=== PATIENT | female | born 1995 | race Caucasian/White ===

== ENCOUNTER 2017-05-03 11:43 | Emergency (ER) | END 2017-05-03 13:55 | disposition left against medical advice (07) | LOC: UCCORT 11:43 | DX: J02.9 Acute pharyngitis, unspecified (principal); R59.1 Generalized enlarged lymph nodes; Z53.21 Procedure and treatment not carried out due to patient leaving prior to being seen by health care provider ==

== ENCOUNTER 2017-05-03 16:05 | Emergency (ER) | payer OTHER ==
--- NOTE | 2017-05-03 18:00 | UC ---
FLU HPI - HPI Summary HPI Summary: Flew in from [place] last nigh now has a cough body aches and sore throat - History of Current Complaint Chief Complaint: UCRespiratory Stated Complaint: SORE THROAT/ACHES Time Seen by Provider: 05/03/17 17:53 Hx Obtained From: Patient Hx From Patient Unobtainable Due To: Dementia ?: No Onset/Duration: Sudden Onset, Lasting Days - 1 Severity Currently: Moderate Severity Initially: Moderate Pain Intensity: 5 Pain Scale Used: 0-10 Numeric Associated Signs & Symptoms: Positive: Myalgia, Cough, Sore Throat - Allergy/Home Medications Allergies/Adverse Reactions: Allergies Allergy/AdvReac Type Severity Reaction Status Date / Time No Known Allergies Allergy Verified 05/03/17 17:35 Home Medications: Home Medications Control Pill 1 tab DAILY 05/03/17 [History Confirmed 05/03/17] PMH/Surg Hx/FS Hx/Imm Hx Previously Healthy: Yes - Surgical History Surgical History: Yes Surgery Procedure, Year, and Place: WISDOM TEETH - Family History Known Family History: Positive: None - Social History Occupation: Student Lives: With Family Alcohol Use: Weekly Substance Use Type: None Smoking Status (MU): Never Smoked Tobacco Have You Smoked in the Last Year: No Review of Systems Constitutional: Chills, Fatigue Skin: Negative Eyes: Negative ENT: Sore Throat, Nasal Discharge Respiratory: Cough Cardiovascular: Negative Gastrointestinal: Negative Genitourinary: Negative Motor: Negative Neurovascular: Negative Musculoskeletal: Arthralgia, Myalgia Neurological: Negative Psychological: Negative Is Patient Immunocompromised?: No All Other Systems Reviewed And Are Negative: Yes Physical Exam Triage Information Reviewed: Yes Appearance: Well-Appearing, No Pain Distress, Well-Nourished Vital Signs: Initial Vital Signs Temp 99 F 05/03/17 17:36 Pulse 93 05/03/17 17:36 Resp 16 05/03/17 17:36 BP 119/72 05/03/17 17:36 Pulse Ox 100 05/03/17 17:36 Vital Signs Reviewed: Yes Eye Exam: Normal Eyes: Positive: Conjunctiva Clear ENT Exam: Normal ENT: Positive: Normal ENT inspection, Hearing grossly normal, Pharynx normal, Uvula midline. Negative: Nasal congestion, Nasal drainage, Tonsillar swelling, Tonsillar exudate, Trismus, Muffled voice, Hoarse voice, Dental tenderness, Sinus tenderness Dental Exam: Normal Neck exam: Normal Neck: Positive: Supple, Nontender, No Lymphadenopathy Respiratory Exam: Normal Respiratory: Positive: Chest non-tender, Lungs clear, Normal breath sounds, No respiratory distress, No accessory muscle use Cardiovascular Exam: Normal Cardiovascular: Positive: RRR, No Murmur, Pulses Normal, Brisk Capillary Refill Musculoskeletal Exam: Normal Musculoskeletal: Positive: Strength Intact, ROM Intact, No Edema Neurological Exam: Normal Neurological: Positive: Alert, Muscle Tone Normal Psychological Exam: Normal Skin Exam: Normal Diagnostics - Laboratory Diagnostic Studies Completed/Ordered: influenza A/B (-), RST (-) Flu Course/Dx - Course Course Of Treatment: rest increase fluids, otc meducations for symptom relief follow with pcp prn - Differential Dx/Diagnosis Provider Diagnoses: Viral illness URI Discharge - Discharge Plan Condition: Stable Disposition: HOME Patient Education Materials: Pharyngitis (ED), Viral Syndrome (ED) Referrals: [facility] [Outside] - If Needed
== END 2017-05-03 19:02 | disposition home or self-care (01) ==
LOC: UCCORT 16:05
DX: B34.9 Viral infection, unspecified (principal); J06.9 Acute upper respiratory infection, unspecified
CPT/HCPCS: 87502; 87651; 99201; G0463

== ENCOUNTER 2017-12-05 15:30 | Emergency (ER) | payer OTHER ==
[2017-12-05 16:18] VITALS: BP 115/68
[2017-12-05] MEDS ORDERED: cefTRIAXone VIAL(*) 250 MG VIAL IM ONE (16:31)
--- NOTE | 2017-12-05 16:33 | UC ---
Complaint Female HPI - HPI Summary HPI Summary: Pt presents with c/o of possible chlamydia infection. Pt reports that known sexual partner revealed to her that he tested positive for chlamydia after having sexual intercourse with her. Pt denies any urinary symptoms or unusual vaginal discharge or discomfort. - History Of Current Complaint Chief Complaint: UCGU Stated Complaint: PERSONAL Time Seen by Provider: 12/05/17 16:04 Hx Obtained From: Patient Hx Last Menstrual Period: 11/05/17 ?: No Onset/Duration: Sudden Onset Severity Currently: None Pain Intensity: 0 Associated Signs And Symptoms: Positive: Negative - Risk Factors Ectopic Risk Factor: Negative Ovarian Torsion Risk Factor: Reproductive Age - Allergies/Home Medications Allergies/Adverse Reactions: Allergies Allergy/AdvReac Type Severity Reaction Status Date / Time No Known Allergies Allergy Verified 12/05/17 16:10 PMH/Surg Hx/FS Hx/Imm Hx Previously Healthy: Yes - Surgical History Surgical History: Yes Surgery Procedure, Year, and Place: WISDOM TEETH - Family History Known Family History: Positive: Cardiac Disease - Social History Occupation: Student - [employer] Lives: Dormitory/Roommates Alcohol Use: Weekly Substance Use Type: None Smoking Status (MU): Never Smoked Tobacco Have You Smoked in the Last Year: No - Immunization History Vaccination Up to Date: Yes Review of Systems Constitutional: Negative Skin: Negative Eyes: Negative ENT: Negative Respiratory: Negative Cardiovascular: Negative Gastrointestinal: Negative Genitourinary: Negative Motor: Negative Neurovascular: Negative Musculoskeletal: Negative Neurological: Negative Psychological: Negative Is Patient Immunocompromised?: No All Other Systems Reviewed And Are Negative: Yes Physical Exam Triage Information Reviewed: Yes Appearance: Well-Appearing Vital Signs: Initial Vital Signs Temp 99.4 F 12/05/17 16:11 Pulse 74 12/05/17 16:11 Resp 17 12/05/17 16:11 BP 115/68 12/05/17 16:11 Pulse Ox 100 12/05/17 16:11 Vital Signs Reviewed: Yes Eye Exam: Normal ENT Exam: Normal ENT: Positive: Hearing grossly normal Dental Exam: Normal Neck exam: Normal Respiratory Exam: Normal Respiratory: Positive: No respiratory distress Musculoskeletal Exam: Normal Neurological Exam: Normal Psychological Exam: Normal Skin Exam: Normal Complaint Female Dx - Differential Dx/Diagnosis Differential Diagnosis/HQI/PQRI: Sexually Transmitted Disease Provider Diagnoses: sexually transmitted disease exposure Discharge - Sign-Out/Discharge Documenting (check all that apply): Patient Departure All imaging exams completed and their final reports reviewed: No Studies - Discharge Plan Condition: Stable Disposition: HOME Patient Education Materials: Chlamydia (ED), Safe Sex (ED) Referrals: [facility] [Outside] - If Needed No Primary Care Phys,NOPCP [Primary Care Provider] - - Billing Disposition and Condition Condition: STABLE Disposition: Home
[2017-12-05] MEDS ORDERED: Azithromycin TAB* 250 MG PO ONE (16:34)
[2017-12-05] MEDS ORDERED: Lidocaine 1% MPF* 2 ML VIAL ONE (16:45)
== END 2017-12-05 17:15 | disposition home or self-care (01) ==
LOC: UCCORT 15:30
DX: Z20.2 Contact with and (suspected) exposure to infections with a predominantly sexual mode of transmission (principal)
CPT/HCPCS: 81003; 84702; 87491; 87591; 99211; A9270-GY; G0463; J0696

== ENCOUNTER 2018-02-11 16:40 | Emergency (ER) | payer OTHER ==
[2018-02-11 17:30] VITALS: BP 128/76
--- NOTE | 2018-02-11 17:41 | UC ---
Throat Pain/Nasal Aidan HPI - HPI Summary HPI Summary: sore thraot for 1 day, no other symtpoms - History of Current Complaint Chief Complaint: UCGeneralIllness Stated Complaint: ST Time Seen by Provider: 02/11/18 17:34 Hx Obtained From: Patient Hx Last Menstrual Period: 01/17/15 BCP Onset/Duration: Sudden Onset, Lasting Days - 1 Severity: Moderate Pain Intensity: 5 Associated Signs & Symptoms: Positive: Dysphagia - Allergies/Home Medications Allergies/Adverse Reactions: Allergies Allergy/AdvReac Type Severity Reaction Status Date / Time No Known Allergies Allergy Verified 02/11/18 17:30 PMH/Surg Hx/FS Hx/Imm Hx Previously Healthy: Yes - Surgical History Surgical History: Yes Surgery Procedure, Year, and Place: WISDOM TEETH - Family History Known Family History: Positive: None, Cardiac Disease - Social History Alcohol Use: Weekly Alcohol Amount: once a week Substance Use Type: None Smoking Status (MU): Never Smoked Tobacco Have You Smoked in the Last Year: No - Immunization History Vaccination Up to Date: Yes Review of Systems All Other Systems Reviewed And Are Negative: Yes Constitutional: Positive: Negative Skin: Positive: Negative Eyes: Positive: Negative ENT: Positive: Sore Throat Respiratory: Positive: Negative Cardiovascular: Positive: Negative Gastrointestinal: Positive: Negative Genitourinary: Positive: Negative Motor: Positive: Negative Neurovascular: Positive: Negative Musculoskeletal: Positive: Negative Neurological: Positive: Negative Psychological: Positive: Negative Is Patient Immunocompromised?: No Physical Exam Triage Information Reviewed: Yes Appearance: Well-Appearing, Well-Nourished, Pain Distress Vital Signs: Initial Vital Signs Temp 98.2 F 02/11/18 17:26 Pulse 95 02/11/18 17:26 Resp 16 02/11/18 17:26 BP 128/76 02/11/18 17:26 Pulse Ox 100 02/11/18 17:26 Vital Signs Reviewed: Yes ENT: Positive: Pharyngeal erythema Dental Exam: Normal Neck exam: Normal Respiratory Exam: Normal Respiratory: Positive: Chest non-tender, Lungs clear, Normal breath sounds Cardiovascular Exam: Normal Cardiovascular: Positive: RRR, No Murmur, Pulses Normal Abdominal Exam: Normal Abdomen Description: Positive: Nontender, No Organomegaly, Soft Musculoskeletal Exam: Normal Neurological Exam: Normal Psychological Exam: Normal Skin Exam: Normal Throat Pain/Nasal Course/Dx - Course Course Of Treatment: hx obtained, exam performed ,meds reviewed, rapid strep obtained - Differential Dx/Diagnosis Differential Diagnosis/HQI/PQRI: Pharyngitis, Sinusitis Provider Diagnoses: strep pharyngitis Discharge - Sign-Out/Discharge Documenting (check all that apply): Patient Departure All imaging exams completed and their final reports reviewed: Yes - Discharge Plan Condition: Stable Disposition: HOME Prescriptions: Amoxicillin PO (*) [Amoxicillin 875 MG (*)] 875 mg PO BID #19 tab Referrals: No Primary Care Phys,NOPCP [Primary Care Provider] - Additional Instructions: 1. take he medication as prescribed. 2. Get rest and drink plenty of clear fluid - Billing Disposition and Condition Condition: STABLE Disposition: Home
[2018-02-11] MEDS ORDERED: Amoxicillin PO (*) 500 MG CAP PO ONE (17:51)
[2018-02-11] MEDS ORDERED: Amoxicillin PO (*) 250 MG CAP PO ONE (17:51)
== END 2018-02-11 18:01 | disposition home or self-care (01) ==
LOC: UCCORT 16:40
DX: J02.0 Streptococcal pharyngitis (principal)
CPT/HCPCS: 87651; 99212; A9270-GY; G0463

== ENCOUNTER 2018-03-05 11:36 | Emergency (ER) | payer OTHER ==
[2018-03-05 13:16] VITALS: BP 120/70
--- NOTE | 2018-03-05 13:51 | UC ---
Throat Pain/Nasal Aidan HPI - HPI Summary HPI Summary: 23 year old female presents with onset of sore throat yesterday. States she was seen 02/11/2018 at this facility, diagnosed with strep throat, and treated with 10 day course of amoxicillin. States compliant with entire course. Reports she was treated for strep throat in October as well. Denies fever, chills, ear pain, nasal congestion, dysphagia, cough, chest pain, shortness of breath, abdominal pain, nausea, or vomiting. - History of Current Complaint Chief Complaint: UCRespiratory Stated Complaint: ST, COUGH Time Seen by Provider: 03/05/18 13:26 Hx Obtained From: Patient Hx Last Menstrual Period: last week of Jan. ?: No Onset/Duration: Lasting Days - 1 Severity: Moderate Pain Intensity: 5 Cough: None Associated Signs & Symptoms: Positive: Hoarseness. Negative: Dysphagia, Drooling, Sinus Discomfort, Nasal Discharge, Fever, Vomiting, Rash - Allergies/Home Medications Allergies/Adverse Reactions: Allergies Allergy/AdvReac Type Severity Reaction Status Date / Time No Known Allergies Allergy Verified 03/05/18 13:16 Home Medications: Home Medications Ibuprofen TAB* [Motrin TAB* 400 MG] 400 mg PO BID PRN 03/05/18 [History Confirmed 03/05/18] PMH/Surg Hx/FS Hx/Imm Hx Previously Healthy: Yes - Denies significant PMH - Surgical History Surgical History: Yes Surgery Procedure, Year, and Place: WISDOM TEETH - Family History Known Family History: Positive: Non-Contributory - Social History Occupation: Student Lives: Dormitory/Roommates Alcohol Use: Weekly Alcohol Amount: 3-4 Substance Use Type: None Smoking Status (MU): Never Smoked Tobacco Have You Smoked in the Last Year: No - Immunization History Vaccination Up to Date: Yes Review of Systems All Other Systems Reviewed And Are Negative: Yes Constitutional: Negative: Fever, Chills Skin: Negative: Rash Eyes: Negative: Drainage, Eye Redness ENT: Positive: Sore Throat. Negative: Ear Ache, Nasal Discharge, Sinus Congestion Respiratory: Negative: Shortness Of Breath Cardiovascular: Negative: Chest Pain Gastrointestinal: Negative: Abdominal Pain, Vomiting, Nausea Is Patient Immunocompromised?: No Physical Exam - Summary Physical Exam Summary: GENERAL APPEARANCE: Well developed, well nourished, alert and cooperative, and appears to be in no acute distress. HEAD: Atraumatic. normocephalic. EYES: Conjunctiva clear. No discharge. EARS: External auditory canals and tympanic membranes clear, hearing grossly intact. NOSE: No nasal discharge. THROAT: Oral cavity normal. Teeth and gingiva in good general condition. Pharyngeal erythema. 2+ tonsils with exudate. NECK: Neck supple. Mild anterior cervical lymphadenopathy. CARDIAC: Normal S1 and S2. No S3, S4 or murmurs. Rhythm is regular. There is no peripheral edema, cyanosis or pallor. Extremities are warm and well perfused. Capillary refill is less than 2 seconds. LUNGS: Clear to auscultation and percussion without rales, rhonchi, wheezing or diminished breath sounds. ABDOMEN: Positive bowel sounds. Soft, nondistended, nontender. No guarding or rebound. No masses or hepatosplenomegally. MUSKULOSKELETAL: ROM intact to all extremities. No joint erythema or tenderness. Normal muscular development. Normal gait. EXTREMITIES: No significant deformity or joint abnormality. No edema. Peripheral pulses intact. SKIN: Skin normal color, texture and turgor with no lesions or eruptions. Triage Information Reviewed: Yes Vital Signs: Initial Vital Signs Temp 100.1 F 03/05/18 13:10 Pulse 86 03/05/18 13:10 Resp 16 03/05/18 13:10 BP 120/70 03/05/18 13:10 Pulse Ox 99 03/05/18 13:10 Vital Signs Reviewed: Yes Diagnostics - Laboratory Diagnostic Studies Completed/Ordered: Rapid strep positive. Throat Pain/Nasal Course/Dx - Course Course Of Treatment: 23 year old female presents with onset of sore throat yesterday. States she was seen 02/11/2018 at this facility, diagnosed with strep throat, and treated with 10 day course of amoxicillin. States compliant with entire course. Reports she was treated for strep throat in October as well. Denies fever, chills, ear pain, nasal congestion, dysphagia, cough, chest pain, shortness of breath, abdominal pain, nausea, or vomiting. Low grade fever. VSS. Exam revaled pharyngeal erythema, 2+ tonsils with exudate, and anterior cervical lymphadenopathy. Rapid strep positive. With recurrence of her strep will treat with 10 day course of Augmentin. She is returning home from college next week and plans to follow up with ENT at home. Warning symtoms reviewed. Verbalizes understanding and agrees with POC. - Differential Dx/Diagnosis Differential Diagnosis/HQI/PQRI: Laryngitis, Mononucleosis, Pharyngitis, Tonsillitis, URI Provider Diagnosis: Streptococcal pharyngitis Discharge - Sign-Out/Discharge Documenting (check all that apply): Patient Departure All imaging exams completed and their final reports reviewed: No Studies - Discharge Plan Condition: Stable Disposition: HOME Prescriptions: Amoxicillin/Clavulanate TAB* [Augmentin TAB 875*] 875 mg PO BID #20 tab Patient Education Materials: Strep Throat (ED) Referrals: No Primary Care Phys,NOPCP [Primary Care Provider] - Additional Instructions: Your rapid strep test in the clinic today was positive. We will start you on an appropriate antibiotic to treat for the infection. Start Augmentin 1 tab twice a day for 10 days. Take with food to avoid upset stomach. Be sure to complete the entire course even if you are feeling better. After you have been on your antibiotics for 3 days, throw out your current toothbrush and start using a new one to prevent reinfection. Drink plenty of fluids to avoid dehydration especially if you are running any fever. Use salt water gargles several times a day. Take over the counter acetaminophen (Tylenol) or ibuprofen (Advil, Motrin) according to directions as needed for pain or fever. You may also use Chloraseptic spray or Cepacol lonzenges according to directions which contain a numbing medication and can provide some temporary relief from your sore throat. I would recommend that you follow up with an Ear, Nose, and Throat specialist when you return home from college since you have been having recurrent strep infections.. Seek immediate medical attention in the emergency room if you have fever greater than 100.5 F despite taking acetaminophen or ibuprofen, are unable to swallow or develop drooling, are unable to open your mouth fully, are unable to eat or drink, have pain that is not relieved with over the counter pain medication, or have any difficulty breathing. - Billing Disposition and Condition Condition: STABLE Disposition: Home
== END 2018-03-05 14:02 | disposition home or self-care (01) ==
LOC: UCCORT 11:36
DX: J02.0 Streptococcal pharyngitis (principal); B95.0 Streptococcus, group A, as the cause of diseases classified elsewhere
CPT/HCPCS: 87651; 99212; G0463